=== PATIENT | female | born 1985 | race Two or more races ===

== ENCOUNTER 2020-02-25 11:41 | Inpatient (IN) | payer OTHER ==
[2020-02-25] MEDS ORDERED: cloNIDine HCL 0.1 MG TABLET PO PRN (12:52)
[2020-02-25] MEDS ORDERED: ACETAMINOPHEN 325 MG TABLET (FP) PO PRN (12:52)
[2020-02-25] MEDS ORDERED: ONDANSETRON *ODT* 4 MG TABLET SL PRN (12:52)
[2020-02-25] MEDS ORDERED: MENTHOL/PHENOL 1 EACH UD MM PRN (12:52)
[2020-02-25] MEDS ORDERED: MAGNESIUM CITRATE 300 ML BOTTLE PO PRN (12:52)
[2020-02-25] MEDS ORDERED: BISMUTH SUBSALICYLATE 524 MG/30 ML UD PO PRN (12:52)
[2020-02-25] MEDS ORDERED: MAGNESIUM HYDROX 2400MG/30ML ORAL SUSPENSION 30 ML CUP PO PRN (12:52)
[2020-02-25 12:55] VITALS: BMI 27.1
[2020-02-25] MEDS ORDERED: METHADONE HCL 10 MG TABLET (FOR DETOX USE ONLY) PO ONE (14:00)
[2020-02-25] MEDS: MAG HYDROX/AL HYDROX/SIMETH 30 ML UNIT-DOSE CUP PO PRN (14:22)
[2020-02-25] MEDS: METHOCARBAMOL 500 MG TABLET PO PRN ×2 (14:22→22:07)
[2020-02-25] MEDS: hydrOXYzine PAMOATE 25 MG CAPSULE (FP) PO SCH ×3 (14:31→22:07)
[2020-02-25] MEDS: IBUPROFEN 400 MG TABLET (FP) PO PRN (14:32)
[2020-02-25] MEDS: MELATONIN 5 MG TABLETS PO SCH (22:07)
[2020-02-25] MEDS: THIAMINE HCL 100 MG TABLET (FP) PO SCH (22:07)
[2020-02-26] MEDS: hydrOXYzine PAMOATE 25 MG CAPSULE (FP) PO SCH ×5 (05:39→23:37)
[2020-02-26] MEDS ORDERED: METHADONE HCL 5 MG TABLET (FOR DETOX USE ONLY) ONE (09:32)
[2020-02-26] MEDS ORDERED: METHADONE HCL 10 MG TABLET (FOR DETOX USE ONLY) ONE (09:32)
[2020-02-26] MEDS ORDERED: METHADONE (DETOX) 20 MG, METHADONE (DETOX) 5 MG PO ONE (10:00)
[2020-02-26] MEDS: PANTOPRAZOLE 20 MG TABLET PO SCH (10:21)
[2020-02-26] MEDS: PRENATAL VITAMINS W/ FOLIC ACID TABLET (FP) PO SCH (10:21)
[2020-02-26] MEDS: IBUPROFEN 400 MG TABLET (FP) PO PRN (11:15)
[2020-02-26] MEDS: MAG HYDROX/AL HYDROX/SIMETH 30 ML UNIT-DOSE CUP PO PRN (12:19)
[2020-02-26 12:20] LABS: HEMATOCRIT 26.5 % (32.4-45.2); HEMOGLOBIN 8.3 GM/dL (10.7-15.3); MCH 22.4 pg (25.7-33.7); MCHC 31.3 g/dl (32.0-36.0); MEAN CELL VOLUME 71.4 fl (80-96); MEAN PLT VOLUME 9.3 fl (7.5-11.1); PLATELET COUNT 111 K/MM3 (134-434); RBC 3.71 M/mm3 (3.60-5.2); RDW 18.8 % (11.6-15.6)
[2020-02-26 12:27] LABS: POTASSIUM 4.3 mmol/L (3.5-5.1)
[2020-02-26 12:33] LABS: BLOOD UREA NITROGEN 13.8 mg/dL (7-18); CALCIUM 8.2 mg/dL (8.5-10.1)
[2020-02-26 12:36] LABS: CREATININE 0.7 mg/dL (0.55-1.3)
[2020-02-26 12:38] LABS: TOT PROT 6.1 g/dl (6.4-8.2)
[2020-02-26] MEDS: METHIMAZOLE 5 MG TABLET (FP) PO SCH (14:20)
[2020-02-26] MEDS: ACETAMINOPHEN 325 MG TABLET (FP) PO PRN ×2 (14:21→23:39)
[2020-02-26] MEDS ORDERED: COLLOIDAL OATMEAL 1 BAR EACH TP PRN (17:09)
[2020-02-26] MEDS: FERROUS SO4 325 MG TABLET (FP) PO SCH (18:09)
[2020-02-26] MEDS: METHOCARBAMOL 500 MG TABLET PO PRN (18:11)
[2020-02-26] MEDS: THIAMINE HCL 100 MG TABLET (FP) PO SCH (23:37)
[2020-02-26] MEDS: MELATONIN 5 MG TABLETS PO SCH (23:37)
[2020-02-26] MEDS: SENNOSIDES 8.6MG TABLET (FP) PO SCH (23:38)
[2020-02-27] MEDS: ACETAMINOPHEN 325 MG TABLET (FP) PO PRN (05:55)
[2020-02-27] MEDS: hydrOXYzine PAMOATE 25 MG CAPSULE (FP) PO SCH ×5 (05:57→22:18)
[2020-02-27] MEDS: FERROUS SO4 325 MG TABLET (FP) PO SCH ×3 (09:58→18:11)
[2020-02-27] MEDS: PRENATAL VITAMINS W/ FOLIC ACID TABLET (FP) PO SCH (09:59)
[2020-02-27] MEDS: METHIMAZOLE 5 MG TABLET (FP) PO SCH (09:59)
[2020-02-27] MEDS: PANTOPRAZOLE 20 MG TABLET PO SCH (09:59)
[2020-02-27] MEDS ORDERED: METHADONE HCL 10 MG TABLET (FOR DETOX USE ONLY) PO ONE (10:00)
[2020-02-27] MEDS: MINERAL OIL/PETROLAT/WATER TOPICAL CREAM 113 GM JAR TP SCH (11:00)
[2020-02-27] MEDS: MAG HYDROX/AL HYDROX/SIMETH 30 ML UNIT-DOSE CUP PO PRN (11:14)
[2020-02-27] MEDS: IBUPROFEN 400 MG TABLET (FP) PO PRN (13:09)
[2020-02-27] MEDS: LIDOCAINE 5% TOPICAL PATCH TP SCH (15:39)
[2020-02-27] MEDS: METHOCARBAMOL 500 MG TABLET PO PRN (18:12)
[2020-02-27] MEDS: THIAMINE HCL 100 MG TABLET (FP) PO SCH (22:17)
[2020-02-27] MEDS: MELATONIN 5 MG TABLETS PO SCH (22:17)
[2020-02-27] MEDS: LIDOCAINE PATCH REMOVAL MC SCH (22:18)
[2020-02-27] MEDS: SENNOSIDES 8.6MG TABLET (FP) PO SCH (22:18)
[2020-02-28] MEDS: MINERAL OIL/PETROLAT/WATER TOPICAL CREAM 113 GM JAR TP SCH ×2 (00:21→10:05)
[2020-02-28] MEDS: hydrOXYzine PAMOATE 25 MG CAPSULE (FP) PO SCH ×5 (05:43→22:13)
[2020-02-28] MEDS: IBUPROFEN 400 MG TABLET (FP) PO PRN (06:16)
[2020-02-28] MEDS ORDERED: METHADONE HCL 10 MG TABLET (FOR DETOX USE ONLY) ONE (08:41)
[2020-02-28] MEDS ORDERED: METHADONE HCL 5 MG TABLET (FOR DETOX USE ONLY) ONE (08:41)
[2020-02-28] MEDS: FERROUS SO4 325 MG TABLET (FP) PO SCH ×3 (08:52→17:56)
[2020-02-28] MEDS ORDERED: METHADONE (DETOX) 10 MG, METHADONE (DETOX) 5 MG PO ONE (10:00)
[2020-02-28] MEDS: METHIMAZOLE 5 MG TABLET (FP) PO SCH (10:05)
[2020-02-28] MEDS: PRENATAL VITAMINS W/ FOLIC ACID TABLET (FP) PO SCH (10:05)
[2020-02-28] MEDS: PANTOPRAZOLE 20 MG TABLET PO SCH (10:05)
[2020-02-28] MEDS: LIDOCAINE 5% TOPICAL PATCH TP SCH (10:06)
[2020-02-28] MEDS: MAG HYDROX/AL HYDROX/SIMETH 30 ML UNIT-DOSE CUP PO PRN (13:21)
[2020-02-28] MEDS: ACETAMINOPHEN 325 MG TABLET (FP) PO PRN (14:32)
[2020-02-28] MEDS: METHOCARBAMOL 500 MG TABLET PO PRN (17:56)
[2020-02-28] MEDS: THIAMINE HCL 100 MG TABLET (FP) PO SCH (22:12)
[2020-02-28] MEDS: LIDOCAINE PATCH REMOVAL MC SCH (22:13)
[2020-02-28] MEDS: SENNOSIDES 8.6MG TABLET (FP) PO SCH (22:13)
[2020-02-28] MEDS: MELATONIN 5 MG TABLETS PO SCH (22:13)
[2020-02-29] MEDS: IBUPROFEN 400 MG TABLET (FP) PO PRN ×2 (03:05→22:05)
[2020-02-29] MEDS: hydrOXYzine PAMOATE 25 MG CAPSULE (FP) PO SCH ×5 (05:56→22:02)
[2020-02-29] MEDS: FERROUS SO4 325 MG TABLET (FP) PO SCH ×3 (08:00→17:43)
[2020-02-29] MEDS ORDERED: METHADONE HCL 10 MG TABLET (FOR DETOX USE ONLY) PO ONE (10:00)
[2020-02-29] MEDS: PRENATAL VITAMINS W/ FOLIC ACID TABLET (FP) PO SCH (10:43)
[2020-02-29] MEDS: LIDOCAINE 5% TOPICAL PATCH TP SCH (10:43)
[2020-02-29] MEDS: PANTOPRAZOLE 20 MG TABLET PO SCH (10:43)
[2020-02-29] MEDS: METHIMAZOLE 5 MG TABLET (FP) PO SCH (10:44)
[2020-02-29] MEDS: MINERAL OIL/PETROLAT/WATER TOPICAL CREAM 113 GM JAR TP SCH (11:53)
[2020-02-29] MEDS: MAG HYDROX/AL HYDROX/SIMETH 30 ML UNIT-DOSE CUP PO PRN (13:07)
[2020-02-29] MEDS: METHOCARBAMOL 500 MG TABLET PO PRN (17:44)
[2020-02-29] MEDS: THIAMINE HCL 100 MG TABLET (FP) PO SCH (22:02)
[2020-02-29] MEDS: MELATONIN 5 MG TABLETS PO SCH (22:02)
[2020-02-29] MEDS: LIDOCAINE PATCH REMOVAL MC SCH (23:55)
[2020-02-29] MEDS: SENNOSIDES 8.6MG TABLET (FP) PO SCH (23:55)
[2020-03-01] MEDS ORDERED: METHADONE HCL 5 MG TABLET (FOR DETOX USE ONLY) PO ONE (06:00)
[2020-03-01] MEDS: hydrOXYzine PAMOATE 25 MG CAPSULE (FP) PO SCH ×2 (06:19→09:53)
[2020-03-01] MEDS: IBUPROFEN 400 MG TABLET (FP) PO PRN (07:14)
[2020-03-01] MEDS: FERROUS SO4 325 MG TABLET (FP) PO SCH (07:14)
[2020-03-01] MEDS: METHOCARBAMOL 500 MG TABLET PO PRN (07:15)
[2020-03-01 09:53] VITALS: BP 132/61; PULSE 91; TEMP 97.8
[2020-03-01] MEDS: PANTOPRAZOLE 20 MG TABLET PO SCH (09:53)
[2020-03-01] MEDS: PRENATAL VITAMINS W/ FOLIC ACID TABLET (FP) PO SCH (09:53)
[2020-03-01] MEDS: METHIMAZOLE 5 MG TABLET (FP) PO SCH (09:53)
[2020-03-01] MEDS: LIDOCAINE 5% TOPICAL PATCH TP SCH (09:53)
[2020-03-01] MEDS: MINERAL OIL/PETROLAT/WATER TOPICAL CREAM 113 GM JAR TP SCH (09:53)
== END 2020-03-01 10:06 | disposition home or self-care (01) | DRG 773 ==
LOC: YASAS 11:41 → Y6N 13:10
PROVIDERS: ADMIT Allergy & Immunology; ATTEND Allergy & Immunology
PROC: HZ2ZZZZ Detoxification Services for Substance Abuse Treatment (ICD-10-PCS; principal; 2020-02-25)
DX: F11.23 Opioid dependence with withdrawal (principal); F19.282 Other psychoactive substance dependence with psychoactive substance-induced sleep disorder; F19.280 Other psychoactive substance dependence with psychoactive substance-induced anxiety disorder; F41.9 Anxiety disorder, unspecified; D64.9 Anemia, unspecified; E05.90 Thyrotoxicosis, unspecified without thyrotoxic crisis or storm; G43.909 Migraine, unspecified, not intractable, without status migrainosus; K21.9 Gastro-esophageal reflux disease without esophagitis; M54.5 Low back pain; G89.29 Other chronic pain; R00.1 Bradycardia, unspecified; Z90.49 Acquired absence of other specified parts of digestive tract; Z98.84 Bariatric surgery status; Z98.890 Other specified postprocedural states; Z98.891 History of uterine scar from previous surgery
CPT/HCPCS: 36415; 80053; 81025; 85027; 86780; 93005; 93010; C9803; U0003